=== PATIENT | female | born 1960 | race Caucasian/White ===

== ENCOUNTER 2018-11-01 13:46 | Emergency (ER) | payer MEDICAID ==
[~2018-11-01] VITALS: Ht 157.5 cm; Wt 61.2 kg
[~2018-11-01 13:46] MED LIST: ATA25 PO; CITA20TA15 PO; TRAZ-343 PO
[2018-11-01 13:49] VITALS: BP 124/59
[2018-11-01] MEDS ORDERED: KETOROLAC 30 MG/ML VIAL IVP ONE (14:00)
[2018-11-01] MEDS ORDERED: NACL 0.9% 1,000 ML IV ONE (14:00)
[2018-11-01] MEDS ORDERED: KETOROLAC 60 MG/2 ML VIAL IM ONE (14:45)
[2018-11-01 16:32] VITALS: BP 124/59
== END 2018-11-01 16:32 | disposition home or self-care (01) ==
LOC: MED 13:46
DX: R10.12 Left upper quadrant pain (principal); J11.1 Influenza due to unidentified influenza virus with other respiratory manifestations; F17.200 Nicotine dependence, unspecified, uncomplicated; Z79.899 Other long term (current) drug therapy
CPT/HCPCS: 81002; 81025; 96372; 99283; J1885

== ENCOUNTER 2020-02-20 13:48 | Emergency (ER) | payer MEDICAID ==
[~2020-02-20] VITALS: Ht 154.9 cm; Wt 63.5 kg
[2020-02-20 13:55] VITALS: BP 130/71
--- NOTE | 2020-02-20 14:01 | NUR ---
Patient ambulated to bed 2. RN evaluating patient at bedside.
--- NOTE | 2020-02-20 14:14 | NUR ---
59 Y/F PRESENTS TO ED FOR HEAD PRESSURE X 2 DAY OFF AND ON. PT DENIES PAIN BUT REPORTS PRESSURE AT 8/10. DENIES ANY HEAD TRAUMA. BUMP NOTED TO R SIDE OF HEAD. PT ALSO NOTICED B EAR SWELLING SINCE YESTERDAY. RASH ON NECK AND RADIATES TO HEAD X 3 MONTHS. PT DENIES USE OF ANY NEW PRODUCTS OR SOLUTIONS. PT REPORTS SHE TOOK BENADRYL LAST WEEK AND NOTICED SLIGHT RELIEF. PT REPORTS BLURRED VISION. NKDA PMH DENEIS
[2020-02-20] MEDS ORDERED: predniSONE 20 MG TAB PO ONE (15:00)
[2020-02-20] MEDS ORDERED: CEPHALEXIN 500 MG CAP PO ONE (15:00)
[2020-02-20 15:18] VITALS: BP 130/71
== END 2020-02-20 15:18 | disposition home or self-care (01) ==
LOC: MED 13:48
DX: L20.9 Atopic dermatitis, unspecified (principal); G44.209 Tension-type headache, unspecified, not intractable; H60.12 Cellulitis of left external ear; Z79.899 Other long term (current) drug therapy
CPT/HCPCS: 99283; J7512

== ENCOUNTER 2020-06-21 15:49 | Emergency (ER) | payer MEDICAID ==
[~2020-06-21] VITALS: Ht 154.9 cm; Wt 63.5 kg
[2020-06-21 15:53] VITALS: BP 119/89
--- NOTE | 2020-06-21 16:07 | NUR ---
59 YEAR OLD FEMALE COMPLAINS OF PAIN TO RIGHT HAND. PT STATES THAT HER HAND IS VERY ITCHY AND DRY AFTER COMING INTO CONTACT WITH DETERGENT THAT SHE USED. SKIN IS VISIBLY DRY WITH CRACKS. PT AOX4, BREATHING EVEN AND UNLABORED, SKIN WARM AND DRY. BED IN LOWEST POSITION, LOCKED, BED RAIL UPX1. PMH - DENIES ALLERGIES - NKA
[2020-06-21 16:26] VITALS: BP 119/89
--- NOTE | 2020-06-21 16:27 | NUR ---
Patient discharged with v/s stable. Written and verbal after care instructions given and explained. Patient alert, oriented and verbalized understanding of instructions. Ambulatory with steady gait. All questions addressed prior to discharge. ID band removed. Patient advised to follow up with PMD. Rx of hydrocortisone cream given. Patient educated on indication of medication including possible reaction and side effects. Opportunity to ask questions provided and answered.
== END 2020-06-21 16:27 | disposition home or self-care (01) ==
LOC: MED 15:49
DX: L25.9 Unspecified contact dermatitis, unspecified cause (principal); F17.210 Nicotine dependence, cigarettes, uncomplicated; Z71.6 Tobacco abuse counseling; Z98.890 Other specified postprocedural states; Z79.899 Other long term (current) drug therapy
CPT/HCPCS: 99282

== ENCOUNTER 2020-12-02 21:00 | Emergency (ER) | payer MEDICAID ==
[~2020-12-02] VITALS: Ht 154.9 cm; Wt 63.5 kg
[2020-12-02 21:13] VITALS: BP 127/82
--- NOTE | 2020-12-02 21:13 | NUR ---
to bed ambulatory
--- NOTE | 2020-12-02 21:26 | NUR ---
Pt states she had allergic reaction to hair dye ~2 hr ago. Noted w/redness and itching around ears and edges of face. States similar reaction occurred when she used hair dye a few months ago. Breathing even and unlabored, no other signs of allergic reaction noted.
--- NOTE | 2020-12-02 22:19 | NUR ---
Dr. Jj examining patient.
[2020-12-02] MEDS ORDERED: diphenhydrAMINE 50 MG CAP PO ONE (22:20)
[2020-12-02] MEDS ORDERED: predniSONE 20 MG TAB PO ONE (22:20)
[2020-12-02] MEDS ORDERED: HYD2.5O TP (22:34)
[2020-12-02] MEDS ORDERED: BEN50 PO (22:34)
[2020-12-02] MEDS ORDERED: PRED20TA6 PO (22:34)
[2020-12-02 22:55] VITALS: BP 127/82
--- NOTE | 2020-12-02 22:55 | NUR ---
Patient discharged with v/s stable. Written and verbal after care instructions given and explained. Patient alert, oriented and verbalized understanding of instructions. Ambulatory with steady gait. All questions addressed prior to discharge. ID band removed. Patient advised to follow up with PMD. Rx of Prednisone, Benadryl, and Hydrocortisone cream given. Patient educated on indication of medication including possible reaction and side effects. Opportunity to ask questions provided and answered.
== END 2020-12-02 22:55 | disposition home or self-care (01) ==
LOC: MED 21:00
DX: L25.9 Unspecified contact dermatitis, unspecified cause (principal); Z79.899 Other long term (current) drug therapy
CPT/HCPCS: 99283; J7512; Q0163

== ENCOUNTER 2021-06-21 19:46 | Emergency (ER) | payer MEDICAID ==
[~2021-06-21] VITALS: Ht 154.9 cm; Wt 63.5 kg
[~2021-06-21 19:46] MED LIST changes: +BEN50 PO; +HYD2.5O TP; +PRED20TA6 PO
[2021-06-21 20:25] VITALS: BP 129/69
--- NOTE | 2021-06-21 20:28 | NUR ---
to lobby a/w bed ambulatory
--- NOTE | 2021-06-21 21:30 | NUR ---
TO BED AMBULATORY
--- NOTE | 2021-06-21 21:33 | NUR ---
SEEN AND EXAMINED BY AVIS
[2021-06-21] MEDS ORDERED: KETOROLAC 30 MG/ML VIAL IM ONE (21:40)
[2021-06-21 22:37] LABS: BASOPHILS % (AUTO) 0.3 % (0.0-2.0); EOSINOPHILS # (AUTO) 0.1 K/uL (0-0.4); EOSINOPHILS % (AUTO) 1.1 % (0.0-4.0); HEMATOCRIT 37.9 % (36-48); LYMPHOCYTES # (AUTO) 1.3 K/uL (2.5-16.5); LYMPHOCYTES % (AUTO) 12.3 % (20.5-51.1); MEAN CORPUSCULAR HEMOGLOBIN 30 pg (27-31); MEAN CORPUSCULAR HGB CONC 34 g/dL (33-37); MEAN CORPUSCULAR VOLUME 87.1 fL (80-94); MONOCYTES # (AUTO) 0.5 K/uL (0.8-1.0); NEUTROPHILS # (AUTO) 8.5 K/uL (1.8-7.7); NEUTROPHILS % (AUTO) 81.3 % (42.2-75.2); PLATELET COUNT (AUTO) 232 K/uL (140-450); RED BLOOD CELL COUNT(AUTO) 4.34 MIL/uL (4.20-5.40); RED CELL DISTRIBUTION WIDTH 13.5 % (11.6-13.7); WHITE BLOOD COUNT (AUTO) 10.5 K/uL (4.8-10.8)
[2021-06-21 23:12] LABS: ALBUMIN 3.7 g/dL (3.4-5.0); ANION GAP 13.7 (8-16); CARBON DIOXIDE 24.6 mmol/L (21-32); CREATININE 0.7 mg/dL (0.6-1.3); POTASSIUM 3.3 mmol/L (3.5-5.1); TOTAL BILIRUBIN 1.1 mg/dL (0.0-1.0)
[2021-06-21] MEDS ORDERED: CEPH-588 PO (23:41)
[2021-06-21] MEDS ORDERED: cephALEXin 500 MG CAP PO ONE (23:45)
--- NOTE | 2021-06-21 23:57 | NUR ---
patient ambulated to the bathroom for urine collection
[2021-06-22 00:08] LABS: APPEARANCE,URINE CLEAR (CLEAR); BILIRUBIN,URINE NEGATIVE (NEGATIVE); BLOOD, URINE TRACE-I (NEGATIVE); COLOR,URINE YELLOW (YELLOW); LEUKOCYTE ESTERASE ,URINE NEGATIVE (NEGATIVE); NITRITE, URINE NEGATIVE (NEGATIVE); PH,URINE 6.5 (5.0-9.0); UGLUCOSE NEGATIVE (NEGATIVE)
[2021-06-22 00:20] LABS: RBC,URINE 0-5 /HPF (0-5); WBC,URINE 0-5 /HPF (0-5)
[2021-06-22 00:25] VITALS: BP 107/70
== END 2021-06-22 00:25 | disposition home or self-care (01) ==
LOC: MED 19:46
DX: N12 Tubulo-interstitial nephritis, not specified as acute or chronic (principal); Z79.899 Other long term (current) drug therapy
CPT/HCPCS: 36415; 74176; 80053; 81001; 83690; 85025; 87086; 96372; 99284; J1885

== ENCOUNTER 2021-08-20 00:34 | Emergency (ER) | payer MEDICAID ==
[~2021-08-20] VITALS: Ht 154.9 cm; Wt 63.5 kg
[~2021-08-20 00:34] MED LIST changes: +CEPH-588 PO
[2021-08-20 01:25] VITALS: BP 135/81
--- NOTE | 2021-08-20 01:25 | NUR ---
"MY RIGHT HAND IS ITCHING, AND I CAN'T STAND IT. I DO A LOT OF CLEANING" RIGHT HAND RED AND PT IS SCRATCHING WHILE SITTING IN TRIAGE
[2021-08-20] MEDS ORDERED: HYD2.5O TP (01:58)
[2021-08-20] MEDS ORDERED: methylPREDNISolone SS 125 MG/2 ML VIAL IM ONE (02:00)
== END 2021-08-20 02:25 | disposition home or self-care (01) ==
LOC: MED 00:34
DX: L25.9 Unspecified contact dermatitis, unspecified cause (principal)
CPT/HCPCS: 96372; 99283; J2930; Q0163

== ENCOUNTER 2021-09-19 12:55 | Emergency (ER) | payer MEDICAID ==
[~2021-09-19] VITALS: Ht 154.9 cm; Wt 76.2 kg
[2021-09-19 13:06] VITALS: BP 136/76
--- NOTE | 2021-09-19 13:32 | NUR ---
PT AMBULATED TO ER BED 4
[2021-09-19] MEDS ORDERED: MAGNESIUM CITRATE 300 ML BTL PO ONE (13:55)
[2021-09-19] MEDS ORDERED: NACL 0.9% 1,000 ML IV ONE (14:00)
--- NOTE | 2021-09-19 14:22 | NUR ---
LAB AT BEDSIDE FOR BLOOD DRAW
--- NOTE | 2021-09-19 14:35 | NUR ---
PT TAKEN TO ER BED 1
[2021-09-19 14:47] LABS: APPEARANCE,URINE SL CLOUDY (CLEAR); BILIRUBIN,URINE NEGATIVE (NEGATIVE); BLOOD, URINE 3+ (NEGATIVE); COLOR,URINE YELLOW (YELLOW); LEUKOCYTE ESTERASE ,URINE 2+ (NEGATIVE); NITRITE, URINE POSITIVE (NEGATIVE); PH,URINE 6.5 (5.0-9.0); UGLUCOSE NEGATIVE (NEGATIVE)
[2021-09-19 14:56] LABS: BASOPHILS % (AUTO) 0.2 % (0.0-2.0); EOSINOPHILS # (AUTO) 0.1 K/uL (0-0.4); EOSINOPHILS % (AUTO) 0.6 % (0.0-4.0); HEMATOCRIT 36.9 % (36-48); HEMOGLOBIN 12.5 g/dL (12.0-16.0); LYMPHOCYTES # (AUTO) 1.7 K/uL (2.5-16.5); MEAN CORPUSCULAR HEMOGLOBIN 29 pg (27-31); MEAN CORPUSCULAR HGB CONC 34 g/dL (33-37); MEAN CORPUSCULAR VOLUME 86.1 fL (80-94); MONOCYTES # (AUTO) 1.3 K/uL (0.8-1.0); MONOCYTES % (AUTO) 12.2 % (1.7-9.3); NEUTROPHILS # (AUTO) 7.4 K/uL (1.8-7.7); PLATELET COUNT (AUTO) 226 K/uL (140-450); RED BLOOD CELL COUNT(AUTO) 4.29 MIL/uL (4.20-5.40); RED CELL DISTRIBUTION WIDTH 13.8 % (11.6-13.7); WHITE BLOOD COUNT (AUTO) 10.5 K/uL (4.8-10.8)
[2021-09-19 15:09] LABS: RBC,URINE 11-20 (MOD) /HPF (0-5); WBC,URINE 16-25 (MOD) /HPF (0-5)
[2021-09-19 15:14] LABS: ALBUMIN 3.2 g/dL (3.4-5.0); ANION GAP 11.9 (8-16); CARBON DIOXIDE 27.3 mmol/L (21-32); CREATININE 0.8 mg/dL (0.6-1.3); POTASSIUM 3.2 mmol/L (3.5-5.1); TOTAL BILIRUBIN 0.8 mg/dL (0.0-1.0)
[2021-09-19] MEDS ORDERED: cefTRIAXone 1,000 MG VIAL ONE (15:37)
[2021-09-19] MEDS ORDERED: ACET-10509 PO (16:14)
[2021-09-19] MEDS ORDERED: SULF-59 PO (16:14)
[2021-09-19] MEDS ORDERED: PYR100 PO (16:14)
[2021-09-19] MEDS ORDERED: ONDANSETRON 4 MG/2 ML VIAL IVP ONE (16:20)
[2021-09-19 16:51] VITALS: BP 134/71
--- NOTE | 2021-09-19 16:53 | NUR ---
PATIENT CONDITION STABLE BM X1 TOLERATED IVF/ANTIBIOTIC AFTER CARE REVIEWED UNDERSTOOD LEFT ER AMBULATORY WITH STEADY GAIT.
== END 2021-09-19 16:51 | disposition home or self-care (01) ==
LOC: MED 12:55
DX: N39.0 Urinary tract infection, site not specified (principal); Z79.899 Other long term (current) drug therapy
CPT/HCPCS: 36415; 74176; 80053; 81001; 83690; 85025; 87086; 96361; 96365; 96375; 99284; J0696; J2405; J7030

== ENCOUNTER 2021-09-22 21:36 | Emergency (ER) | payer MEDICAID ==
[~2021-09-22] VITALS: Ht 154.9 cm; Wt 65.1 kg
[~2021-09-22 21:36] MED LIST changes: +ACET-10509 PO; +PYR100 PO; +SULF-59 PO
[2021-09-22 22:19] VITALS: BP 115/91
--- NOTE | 2021-09-22 23:50 | NUR ---
PT TAKEN TO BED 6
--- NOTE | 2021-09-22 23:52 | NUR ---
PT WAS SEEN HERE YESTERDAY. DX WITH UTI, GIVEN ABX (BACTRIM) AND PYRIDIUM. PT THOUGHT SHE HAD NOT RECEIVED AN ANTIBIOTIC. HERE REQUESTING ADDITIONAL INFORMATION
[2021-09-23 00:20] LABS: APPEARANCE,URINE SL CLOUDY (CLEAR); BILIRUBIN,URINE NEGATIVE (NEGATIVE); BLOOD, URINE 2+ (NEGATIVE); COLOR,URINE DARK YELLOW (YELLOW); LEUKOCYTE ESTERASE ,URINE NEGATIVE (NEGATIVE); NITRITE, URINE POSITIVE (NEGATIVE); UGLUCOSE TRACE (NEGATIVE)
[2021-09-23 00:24] LABS: RBC,URINE 0-5 /HPF (0-5)
[2021-09-23] MEDS ORDERED: KETOROLAC 30 MG/ML VIAL IM ONE (01:40)
[2021-09-23] MEDS ORDERED: SULFAMETH/TRIMETH DS 800/160MG 1 TAB PO ONE (01:40)
[2021-09-23 01:50] VITALS: BP 115/91
--- NOTE | 2021-09-23 01:50 | NUR ---
Patient discharged with v/s stable. Written and verbal after care instructions given and explained. Patient verbalized understanding. Ambulatory with steady gait. All questions addressed prior to discharge. Advised to follow up with PMD.
== END 2021-09-23 01:50 | disposition home or self-care (01) ==
LOC: MED 21:36
DX: N39.0 Urinary tract infection, site not specified (principal)
CPT/HCPCS: 81001; 87086; 96372; 99283; J1885

== ENCOUNTER 2021-12-12 21:12 | Emergency (ER) | payer MEDICAID ==
[~2021-12-12] VITALS: Ht 157.5 cm; Wt 63.5 kg
--- NOTE | 2021-12-12 21:33 | NUR ---
TO LOBBY A/W AMBULATORY
[2021-12-12 21:36] VITALS: BP 134/85
[2021-12-12 23:06] LABS: APPEARANCE,URINE SL CLOUDY (CLEAR); BILIRUBIN,URINE NEGATIVE (NEGATIVE); BLOOD, URINE TRACE-I (NEGATIVE); COLOR,URINE YELLOW (YELLOW); LEUKOCYTE ESTERASE ,URINE 1+ (NEGATIVE); NITRITE, URINE POSITIVE (NEGATIVE); UGLUCOSE NEGATIVE (NEGATIVE)
--- NOTE | 2021-12-12 23:21 | NUR ---
PT AMBULATED TO BED #9
--- NOTE | 2021-12-12 23:21 | NUR ---
61 YO F BIB SELF WITH C/C OF DYSURIA [id number]. PT REPORTS INCREASED FREQUENCY AND URGENCY. PT DENIES ABD PAIN. URINE COLLECTED AND TAKEN TO LAB DENIES HX, RX NKDA
[2021-12-12 23:26] LABS: RBC,URINE 0-5 /HPF (0-5); WBC,URINE 20-60 /HPF (0-5)
[2021-12-12] MEDS ORDERED: cefTRIAXone 1,000 MG in LIDOCAINE MPF 1% 2.1 ML IM ONE (23:45)
[2021-12-12] MEDS ORDERED: CEPH-588 PO (23:47)
[2021-12-12] MEDS ORDERED: LIDOCAINE MPF 1% 5 ML ONE (23:51)
[2021-12-12] MEDS ORDERED: cefTRIAXone 1,000 MG VIAL ONE (23:51)
[2021-12-13 00:15] VITALS: BP 129/69
== END 2021-12-13 00:15 | disposition home or self-care (01) ==
LOC: MED 21:12
DX: N39.0 Urinary tract infection, site not specified (principal); Z79.899 Other long term (current) drug therapy; Z98.890 Other specified postprocedural states
CPT/HCPCS: 81001; 87086; 96372; 99283; J0696; J2001

== ENCOUNTER 2022-06-02 17:17 | Emergency (ER) | payer MEDICAID ==
[~2022-06-02] VITALS: Ht 154.9 cm; Wt 63.5 kg
--- NOTE | 2022-06-02 17:34 | NUR ---
PT W/C ASSISTED TO BED 06.
[2022-06-02 17:35] VITALS: BP 146/89
--- NOTE | 2022-06-02 17:54 | NUR ---
PATIENT PRESENTS TO ED WITH LOWER BACK PAIN X 1 DAY . PT STATES HER URINE IS DARK NO MATTER HOW MUCH WATER SHE DRINKS. DENIES N/V/D, PAIN DURING URINATION; SKIN IS PINK/WARM/DRY; AAOX4 WITH EVEN AND STEADY GAIT; DENIES ANY FEVER, CP, SOB, OR COUGH AT THIS TIME; PATIENT STATES PAIN OF 10/10 AT THIS TIME; VSS; PATIENT POSITIONED FOR COMFORT; HOB ELEVATED; BEDRAILS UP X2; BED DOWN. PMH: DENIES
[2022-06-02] MEDS ORDERED: KETOROLAC 30 MG/ML VIAL IM ONE (18:40)
[2022-06-02 19:39] LABS: APPEARANCE,URINE CLEAR (CLEAR); BILIRUBIN,URINE NEGATIVE (NEGATIVE); BLOOD, URINE NEGATIVE (NEGATIVE); COLOR,URINE YELLOW (YELLOW); LEUKOCYTE ESTERASE ,URINE NEGATIVE (NEGATIVE); NITRITE, URINE NEGATIVE (NEGATIVE); UGLUCOSE NEGATIVE (NEGATIVE)
--- NOTE | 2022-06-02 20:38 | NUR ---
Chart checked and completed.
== END 2022-06-02 20:36 | disposition home or self-care (01) ==
LOC: MED 17:17
DX: S39.012A Strain of muscle, fascia and tendon of lower back, initial encounter (principal); X58.XXXA Exposure to other specified factors, initial encounter; Y93.89 Activity, other specified; Y92.89 Other specified places as the place of occurrence of the external cause; Y99.8 Other external cause status
CPT/HCPCS: 72220; 81003; 82948; 96372; 99284; J1885

== ENCOUNTER 2023-08-12 10:24 | Inpatient (IN) | payer BC, MEDICAID ==
[~2023-08-12] VITALS: Ht 154.9 cm; Wt 63.0 kg
[~2023-08-12 10:24] MED LIST changes: +LIDOCAINE MPF 2% 10ML 200 MG/10ML VIAL INJ ONE; +PHENYLEPHRINE 10 MG/ML VIAL ONE; +PROPOFOL 200 MG/20 ML VIAL IV ONE; +ROCURONIUM 50 MG/5 ML VIAL IV ONE; +SEVOFLURANE 250 ML BTL INH ONE
[2023-08-12 10:52] VITALS: BP 116/74; PULSE 82; RESP 20; TEMP 96.7; O2SAT 100
[2023-08-12 12:27] LABS: BASOPHILS % (AUTO) 0.3 % (0.0-2.0); EOSINOPHILS # (AUTO) 0.2 K/uL (0-0.4); EOSINOPHILS % (AUTO) 2.1 % (0.0-4.0); HEMATOCRIT 39.5 % (36-48); HEMOGLOBIN 13.2 g/dL (12.0-16.0); LYMPHOCYTES # (AUTO) 1.7 K/uL (2.5-16.5); LYMPHOCYTES % (AUTO) 15.9 % (20.5-51.1); MEAN CORPUSCULAR HEMOGLOBIN 29 pg (27-31); MEAN CORPUSCULAR HGB CONC 34 g/dL (33-37); MEAN CORPUSCULAR VOLUME 87.6 fL (80-94); MONOCYTES # (AUTO) 0.9 K/uL (0.8-1.0); MONOCYTES % (AUTO) 8.5 % (1.7-9.3); NEUTROPHILS # (AUTO) 7.7 K/uL (1.8-7.7); NEUTROPHILS % (AUTO) 73.2 % (42.2-75.2); PLATELET COUNT (AUTO) 292 K/uL (140-450); RED BLOOD CELL COUNT(AUTO) 4.51 MIL/uL (4.20-5.40); RED CELL DISTRIBUTION WIDTH 13.9 % (11.6-13.7); WHITE BLOOD COUNT (AUTO) 10.5 K/uL (4.8-10.8)
[2023-08-12] MEDS ORDERED: FAMOTIDINE 20 MG/2 ML VIAL IVP ONE (12:40)
[2023-08-12] MEDS ORDERED: NACL 0.9% 1,000 ML IV ONE (12:40)
[2023-08-12] MEDS ORDERED: KETOROLAC 30 MG/ML VIAL IVP ONE (12:40)
[2023-08-12 12:45] LABS: LACTIC ACID 0.9 mmol/L (0.4-2.0)
[2023-08-12 12:46] LABS: APPEARANCE,URINE CLEAR (CLEAR); BILIRUBIN,URINE 2+ (NEGATIVE); BLOOD, URINE TRACE-I (NEGATIVE); COLOR,URINE YELLOW (YELLOW); LEUKOCYTE ESTERASE ,URINE NEGATIVE (NEGATIVE); NITRITE, URINE POSITIVE (NEGATIVE); PROTEIN,URINE 1+ (NEGATIVE); UGLUCOSE NEGATIVE (NEGATIVE)
[2023-08-12 12:54] LABS: ALBUMIN 3.6 g/dL (3.4-5.0); ANION GAP 13.6 (8-16); CALCIUM 9.5 mg/dL (8.5-10.1); CARBON DIOXIDE 27.1 mmol/L (21-32); CREATININE 0.7 mg/dL (0.6-1.3); POTASSIUM 3.7 mmol/L (3.5-5.1); TOTAL BILIRUBIN 1.7 mg/dL (0.0-1.0); TOTAL PROTEIN, SERUM 8.5 g/dL (6.4-8.2)
[2023-08-12 12:59] LABS: ICTOTEST NEGATIVE (NEGATIVE)
[2023-08-12 13:16] LABS: BACTERIA,URINE 10-30 (MOD) /HPF (None Seen); MUCUS,URINE None Seen /LPF (None Seen); RBC,URINE 0-5 /HPF (0-5); SQUAMOUS EPITHELIAL CELL,UR 4-10 (MOD) /LPF (0-3 (FEW)); TRICHOMONAS,URINE None Seen /HPF (None Seen); WBC,URINE 0-5 /HPF (0-5); WHITE BLOOD CELL CASTS,URINE None Seen /LPF (None Seen); YEAST,URINE None Seen /HPF (None Seen)
[2023-08-12] MEDS ORDERED: PIPERACILLIN/TAZOBACTAM 3.375 GM in DEXTROSE 5% 50 ML IV ONE (17:25)
[2023-08-12] MEDS ORDERED: ONDANSETRON 4 MG/2 ML VIAL IVP PRN (17:35)
[2023-08-12] MEDS ORDERED: PIPERACILLIN/TAZOBACTAM 3.375 GM VIAL IV ONE (18:05)
[2023-08-12 20:04] VITALS: O2SAT 97
[2023-08-12] MEDS: NACL 0.9% 1,000 ML IV SCH (20:43)
[2023-08-12] MEDS: MORPHINE SULFATE 2 MG/ML SYR IVP PRN (21:25)
[2023-08-12 22:58] VITALS: O2SAT 97
[2023-08-13] MEDS ORDERED: PIPERACILLIN/TAZOBACTAM 3.375 GM VIAL IV ONE ×3 (01:03→18:59)
[2023-08-13] MEDS: PIPERACILLIN/TAZOBACTAM 3.375 GM in DEXTROSE 5% 50 ML IV SCH ×3 (01:19→18:30)
[2023-08-13 01:22] VITALS: O2SAT 97
[2023-08-13] MEDS: MORPHINE SULFATE 2 MG/ML SYR IVP PRN ×3 (03:46→14:23)
[2023-08-13] MEDS: NACL 0.9% 1,000 ML IV SCH ×3 (04:19→23:44)
[2023-08-13 06:37] VITALS: O2SAT 97
[2023-08-13 07:40] LABS: ALBUMIN 2.9 g/dL (3.4-5.0); ANION GAP 13.3 (8-16); BASOPHILS % (AUTO) 0.1 % (0.0-2.0); CALCIUM 8.5 mg/dL (8.5-10.1); CARBON DIOXIDE 23.2 mmol/L (21-32); CREATININE 0.7 mg/dL (0.6-1.3); EOSINOPHILS # (AUTO) 0.1 K/uL (0-0.4); EOSINOPHILS % (AUTO) 0.5 % (0.0-4.0); HEMATOCRIT 36.1 % (36-48); LYMPHOCYTES # (AUTO) 1.5 K/uL (2.5-16.5); LYMPHOCYTES % (AUTO) 12.8 % (20.5-51.1); MAGNESIUM 1.6 mg/dL (1.8-2.4); MEAN CORPUSCULAR HEMOGLOBIN 29 pg (27-31); MEAN CORPUSCULAR HGB CONC 33 g/dL (33-37); MEAN CORPUSCULAR VOLUME 87.4 fL (80-94); MONOCYTES # (AUTO) 1.1 K/uL (0.8-1.0); MONOCYTES % (AUTO) 9.4 % (1.7-9.3); NEUTROPHILS # (AUTO) 9.3 K/uL (1.8-7.7); NEUTROPHILS % (AUTO) 77.2 % (42.2-75.2); PLATELET COUNT (AUTO) 277 K/uL (140-450); POTASSIUM 3.5 mmol/L (3.5-5.1); RED BLOOD CELL COUNT(AUTO) 4.13 MIL/uL (4.20-5.40); RED CELL DISTRIBUTION WIDTH 13.9 % (11.6-13.7); TOTAL BILIRUBIN 2.4 mg/dL (0.0-1.0); TOTAL PROTEIN, SERUM 7.5 g/dL (6.4-8.2); WHITE BLOOD COUNT (AUTO) 12.1 K/uL (4.8-10.8)
[2023-08-13] MEDS: LORazepam 2 MG/ML VIAL IVP PRN ×2 (08:24→19:28)
[2023-08-13 20:06] VITALS: O2SAT 95
[2023-08-13 21:12] VITALS: PULSE 113; RESP 20; O2SAT 94
[2023-08-14] MEDS ORDERED: PIPERACILLIN/TAZOBACTAM 3.375 GM VIAL IV ONE (02:53)
[2023-08-14] MEDS: PIPERACILLIN/TAZOBACTAM 3.375 GM in DEXTROSE 5% 50 ML IV SCH ×3 (03:01→20:51)
[2023-08-14 04:00] VITALS: BP 131/64; PULSE 103; RESP 19; TEMP 98.6; O2SAT 95
[2023-08-14] MEDS: ACETAMINOPHEN 325 MG TAB PO PRN ×2 (07:00→08:42)
[2023-08-14 08:00] VITALS: PULSE 104; RESP 18; O2SAT 96
[2023-08-14] MEDS ORDERED: fentaNYL citrate 0.05 MG/ML VIAL ONE (08:22)
[2023-08-14] MEDS ORDERED: SUGAMMADEX SODIUM 200 MG/2 ML VIAL IV ONE (08:22)
[2023-08-14] MEDS ORDERED: MIDAZOLAM 2 MG/2 ML VIAL ONE (08:23)
[2023-08-14] MEDS ORDERED: BUPIVACAINE-MPF 0.25% 30 ML VIAL INJ ONE (08:35)
[2023-08-14] MEDS: NACL 0.9% 1,000 ML IV SCH ×3 (09:35→21:09)
[2023-08-14] MEDS ORDERED: ACETAMINOPHEN 100 ML IV ONE (10:03)
[2023-08-14] MEDS ORDERED: HYDROcodone/APAP 5/325 MG 1 TAB TAB PO PRN (10:55)
[2023-08-14] MEDS ORDERED: fentaNYL citrate 0.05 MG/ML VIAL IVP PRN (11:15)
[2023-08-14] MEDS ORDERED: HYDROmorphone 1 MG/ML AMP IVP PRN (11:15)
[2023-08-14] MEDS: MORPHINE SULFATE 2 MG/ML SYR IVP PRN ×2 (13:08→18:35)
[2023-08-14 16:00] VITALS: BP 112/68; PULSE 96; RESP 18; TEMP 97.5; O2SAT 96
[2023-08-14] MEDS ORDERED: MAG SULF 2000 MG/WATER PREMIX 50 ML IV ONE ×2 (18:00→23:10)
[2023-08-14 20:00] VITALS: BP 143/56; PULSE 94; RESP 16; TEMP 98.3; O2SAT 95; O2SAT 96
[2023-08-15] MEDS ORDERED: MAG SULF 2000 MG/WATER PREMIX 50 ML IV ONE (01:00)
[2023-08-15] MEDS: PIPERACILLIN/TAZOBACTAM 3.375 GM in DEXTROSE 5% 50 ML IV SCH ×4 (03:55→17:47)
[2023-08-15] MEDS: NACL 0.9% 1,000 ML IV SCH ×2 (05:35→15:16)
[2023-08-15 06:59] LABS: ALBUMIN 2.3 g/dL (3.4-5.0); CALCIUM 8.8 mg/dL (8.5-10.1); CARBON DIOXIDE 23.9 mmol/L (21-32); CREATININE 0.8 mg/dL (0.6-1.3); POTASSIUM 3.9 mmol/L (3.5-5.1); TOTAL BILIRUBIN 0.6 mg/dL (0.0-1.0); TOTAL PROTEIN, SERUM 7.2 g/dL (6.4-8.2)
[2023-08-15 07:24] LABS: HEMATOCRIT 33.7 % (36-48); HEMOGLOBIN 11.2 g/dL (12.0-16.0); LYMPHOCYTES # (AUTO) 0.9 K/uL (2.5-16.5); LYMPHOCYTES % (AUTO) 6.9 % (20.5-51.1); MEAN CORPUSCULAR HEMOGLOBIN 29 pg (27-31); MEAN CORPUSCULAR HGB CONC 33 g/dL (33-37); MEAN CORPUSCULAR VOLUME 86.8 fL (80-94); MONOCYTES # (AUTO) 0.5 K/uL (0.8-1.0); MONOCYTES % (AUTO) 3.8 % (1.7-9.3); NEUTROPHILS # (AUTO) 11.4 K/uL (1.8-7.7); NEUTROPHILS % (AUTO) 89.3 % (42.2-75.2); PLATELET COUNT (AUTO) 316 K/uL (140-450); RED BLOOD CELL COUNT(AUTO) 3.88 MIL/uL (4.20-5.40); RED CELL DISTRIBUTION WIDTH 13.8 % (11.6-13.7); WHITE BLOOD COUNT (AUTO) 12.8 K/uL (4.8-10.8)
[2023-08-15 08:00] VITALS: BP 124/74; PULSE 79; RESP 18; TEMP 96.8; O2SAT 98
[2023-08-15] MEDS: MORPHINE SULFATE 2 MG/ML SYR IVP PRN ×2 (09:09→17:47)
[2023-08-15 09:26] VITALS: PULSE 89; RESP 19; O2SAT 99
[2023-08-15 14:00] VITALS: O2SAT 94
[2023-08-15 16:00] VITALS: BP 113/63; PULSE 89; RESP 18; TEMP 97.9; O2SAT 99
[2023-08-15 20:00] VITALS: BP 104/57; PULSE 93; RESP 18; TEMP 98.3; O2SAT 93
[2023-08-15] MEDS: LORazepam 2 MG/ML VIAL IVP PRN (22:26)
[2023-08-16] MEDS: PIPERACILLIN/TAZOBACTAM 3.375 GM in DEXTROSE 5% 50 ML IV SCH ×3 (00:28→12:24)
[2023-08-16 08:00] VITALS: BP 123/69; PULSE 85; RESP 18; TEMP 96.7; O2SAT 100; O2SAT 93
[2023-08-16 09:25] LABS: BASOPHILS % (AUTO) 0.2 % (0.0-2.0); EOSINOPHILS % (AUTO) 0.4 % (0.0-4.0); HEMATOCRIT 30.7 % (36-48); HEMOGLOBIN 10.3 g/dL (12.0-16.0); LYMPHOCYTES # (AUTO) 2.4 K/uL (2.5-16.5); LYMPHOCYTES % (AUTO) 26.4 % (20.5-51.1); MEAN CORPUSCULAR HEMOGLOBIN 29 pg (27-31); MEAN CORPUSCULAR HGB CONC 34 g/dL (33-37); MEAN CORPUSCULAR VOLUME 87.2 fL (80-94); MONOCYTES # (AUTO) 0.4 K/uL (0.8-1.0); MONOCYTES % (AUTO) 4.4 % (1.7-9.3); NEUTROPHILS # (AUTO) 6.1 K/uL (1.8-7.7); NEUTROPHILS % (AUTO) 68.6 % (42.2-75.2); PLATELET COUNT (AUTO) 346 K/uL (140-450); RED BLOOD CELL COUNT(AUTO) 3.52 MIL/uL (4.20-5.40); RED CELL DISTRIBUTION WIDTH 14.1 % (11.6-13.7); WHITE BLOOD COUNT (AUTO) 8.9 K/uL (4.8-10.8)
[2023-08-16 09:38] LABS: ANION GAP 11.9 (8-16); CALCIUM 8.5 mg/dL (8.5-10.1); CARBON DIOXIDE 25.9 mmol/L (21-32); CREATININE 0.8 mg/dL (0.6-1.3)
[2023-08-16 09:40] LABS: POTASSIUM 2.8 mmol/L (3.5-5.1)
[2023-08-16] MEDS ORDERED: POTASSIUM CHLORIDE 10 MEQ TABER PO SCH ×2 (09:45→14:00)
[2023-08-16] MEDS ORDERED: AMOX-1230 PO (12:10)
== END 2023-08-16 15:00 | disposition home or self-care (01) | DRG 418 ==
LOC: MED 10:24 → MMU 17:34 → MTU 08-13 20:29
PROVIDERS: ADMIT Hospitalist; ATTEND Hospitalist
PROC: 0DNU4ZZ Release Omentum, Percutaneous Endoscopic Approach (ICD-10-PCS; 2023-08-14)
PROC: 0FT44ZZ Resection of Gallbladder, Percutaneous Endoscopic Approach (ICD-10-PCS; principal; 2023-08-14 08:00)
DX: K80.00 Calculus of gallbladder with acute cholecystitis without obstruction (principal); E87.1 Hypo-osmolality and hyponatremia; D72.829 Elevated white blood cell count, unspecified; E88.09 Other disorders of plasma-protein metabolism, not elsewhere classified; E80.6 Other disorders of bilirubin metabolism; D25.9 Leiomyoma of uterus, unspecified; Z20.822 Contact with and (suspected) exposure to COVID-19; E83.42 Hypomagnesemia; Z88.8 Allergy status to other drugs, medicaments and biological substances; Z79.899 Other long term (current) drug therapy
CPT/HCPCS: 36415; 71045; 76705; 78445; 80048; 80053; 81001; 83605; 83690; 83735; 85025; 87040; 87081; 87086; 96365; 96375; 99285; A9510; J1885; J2001; J2060; J2250; J2270; J2370; J2543; J2704; J3010; J3475; J3490; J7030; J7060; Q0092